=== PATIENT | female | born 1960 | race Caucasian/White ===

== ENCOUNTER 2016-08-06 21:16 | Emergency (ER) | payer MEDICAID ==
[2014-07-24 15:32] VITALS: BMI 20.8
[~2016-08-06 21:16] MED LIST: ALBUTEROL1.25 MG/3 INH; CATAPRES-T1 PATCH.WK; FLEXERIL10 MG PO; HYDROCODONE-APA1 TAB; HYDROCODONE-APA1 TAB PO; LISINOPRIL10 MG PO; NORCO 10/325 TA1 TA1 PO; PAXIL10 MG PO; VENTOLIN HFA18 GM INH
== END 2016-08-06 22:35 | disposition home or self-care (01) ==
LOC: D.ER 21:16
DX: S00.01XA Abrasion of scalp, initial encounter (principal); W22.09XA Striking against other stationary object, initial encounter; Y93.89 Activity, other specified; Y92.019 Unspecified place in single-family (private) house as the place of occurrence of the external cause; C34.90 Malignant neoplasm of unspecified part of unspecified bronchus or lung; F17.200 Nicotine dependence, unspecified, uncomplicated

== ENCOUNTER 2017-01-20 09:03 | Emergency (ER) | payer MEDICAID ==
[2014-07-24 15:32] VITALS: BMI 20.8
[2017-01-20 09:36] LABS: BASOPHILS 0.4 % (0-2); EOSINOPHILS 6.7 % (0-7); HEMATOCRIT 39.4 % (36.0-48.0); HEMOGLOBIN 13.6 g/dL (12-16); LYMPHOCYTES 30.1 % (15-50); MCH 33.7 pg (26.0-34.0); MCHC 34.5 g/dL (31.0-37.0); MCV 97.5 fL (80.0-100.0); MEAN PLATELET VOLUME 9.4 fL (7.4-10.4); MONOCYTES 6.8 % (2-11); RBC 4.04 10x6/uL (4.00-5.40); RDW 13.4 % (11.5-14.5); WBC 5.4 10x3/uL (4.8-10.8)
[2017-01-20 09:43] LABS: PLATELET COUNT 175 10x3/uL (130-400)
[2017-01-20 09:59] LABS: ALBUMIN 3.7 g/dL (3.4-5.0); ALKALINE PHOSPHATASE 77 U/L (46-116); ALT (SGPT) 77 U/L (10-68); BILIRUBIN - TOTAL 0.63 mg/dL (0.2-1.3); CALC OSMOLALITY 276 mosm/kg (275-300); CALCIUM 8.4 mg/dL (8.5-10.1); CARBON DIOXIDE 23.5 mmol/L (21.0-32.0); CHLORIDE - SERUM 102 mmol/L (98-107); CREATININE - SERUM 0.6 mg/dL (0.6-1.3); GLUCOSE 135 mg/dL (74-106); POTASSIUM - SERUM 3.8 mmol/L (3.5-5.1); PROTEIN - SERUM 6.8 g/dL (6.4-8.2); SODIUM 138 mmol/L (136-145); UREA NITROGEN 9 mg/dL (7-18); eGFR NON AFRICAN AMERICAN > 90 mL/min (90-120)
[2017-01-20 10:17] LABS: CKMB 0.7 U/L (0.0-3.6); CREATINE KINASE 104 UL (21-215); TROPONIN-I < 0.017 ng/mL (0.000-0.060)
[2017-01-20 10:59] LABS: APPEARANCE CLEAR (CLEAR); BILIRUBIN NEGATIVE (NEGATIVE); COLOR YELLOW (YELLOW); GLUCOSE 50 mg/dL (NEGATIVE); KETONE SMALL mg/dL (NEGATIVE); LEUKOCYTE ESTERASE NEGATIVE (NEGATIVE); NITRITE NEGATIVE (NEGATIVE); PROTEIN NEGATIVE (NEGATIVE); SPECIFIC GRAVITY 1.015 (1.005-1.020); UROBILINOGEN NORMAL (NORMAL)
== END 2017-01-20 13:12 | disposition home or self-care (01) ==
LOC: D.ER 09:03
PROVIDERS: Family Medicine
DX: E16.2 Hypoglycemia, unspecified (principal); Z76.0 Encounter for issue of repeat prescription; C34.90 Malignant neoplasm of unspecified part of unspecified bronchus or lung; J44.9 Chronic obstructive pulmonary disease, unspecified; J45.909 Unspecified asthma, uncomplicated

== ENCOUNTER 2017-05-30 22:05 | Emergency (ER) | payer MEDICAID ==
[2014-07-24 15:32] VITALS: BMI 20.8
== END 2017-05-31 02:30 | disposition home or self-care (01) ==
LOC: D.ER 22:05
DX: R51 Headache (principal); F17.200 Nicotine dependence, unspecified, uncomplicated

== ENCOUNTER 2018-11-17 20:49 | Observation (INO) | payer MEDICAID | END 2018-11-18 09:43 | disposition left against medical advice (07) | LOC: D.ER 20:49 → D.MS 22:43 | PROVIDERS: ADMIT Family Medicine | DX: F10.129 Alcohol abuse with intoxication, unspecified (principal); I10 Essential (primary) hypertension; F32.9 Major depressive disorder, single episode, unspecified; J44.9 Chronic obstructive pulmonary disease, unspecified; M79.7 Fibromyalgia; R40.2244 Coma scale, best verbal response, confused conversation, 24 hours or more after hospital admission; R40.2354 Coma scale, best motor response, localizes pain, 24 hours or more after hospital admission; R40.2144 Coma scale, eyes open, spontaneous, 24 hours or more after hospital admission; Y90.8 Blood alcohol level of 240 mg/100 ml or more; F41.9 Anxiety disorder, unspecified ==

== ENCOUNTER 2020-10-20 03:30 | Inpatient (IN) | payer MEDICAID ==
[2020-10-20] VITALS (11 sets, daily range): BP systolic 123–163; BP diastolic 76–99; BMI 21.5
[~2020-10-20] VITALS: Ht 162.6 cm; Wt 56.7 kg
[~2020-10-20 03:30] MED LIST changes: +LOPRESSOR25 MG PO; +metoprolol PO
[2020-10-20] MEDS ORDERED: METHOCARBAMOL500 MG PO (03:34)
[2020-10-20] MEDS ORDERED: GABAPENTIN300 MG PO (03:34)
--- NOTE | 2020-10-20 03:52 | NUR ---
BLOOD AND URINE SENT TO LAB.
[2020-10-20 04:00] LABS: BASOPHILS 0.2 % (0-2); EOSINOPHILS 0 % (0-7); HEMATOCRIT 37.2 % (36.0-48.0); HEMOGLOBIN 12.9 g/dL (12-16); IMMATURE GRANULOCYTES 0.3 % (0-5); LYMPHOCYTE ABS# 0.92 10x3/uL (1.18-3.74); LYMPHOCYTES 9.9 % (15-50); MCH 35.4 pg (26.0-34.0); MCHC 34.7 g/dL (31.0-37.0); MCV 102.2 fL (80.0-100.0); MEAN PLATELET VOLUME 9.7 fL (7.4-10.4); MONOCYTES 8.3 % (2-11); NEUTROPHIL ABS# 7.55 10x3/uL (1.56-6.13); NEUTROPHILS 81.3 % (40-80); RBC 3.64 10x6/uL (4.00-5.40); RDW 14.1 % (11.5-14.5); WBC 9.3 10x3/uL (4.8-10.8)
[2020-10-20 04:03] LABS: PLATELET COUNT 207 10x3/uL (130-400)
[2020-10-20 04:07] LABS: ANION GAP 30.6 mmol/L (8-16); CALCIUM 8.9 mg/dL (8.5-10.1); CARBON DIOXIDE 14.2 mmol/L (21.0-32.0); CREATININE - SERUM 1.1 mg/dL (0.6-1.3); POTASSIUM - SERUM 3.8 mmol/L (3.5-5.1)
[2020-10-20 04:16] LABS: BILIRUBIN NEGATIVE (NEGATIVE); KETONE LARGE mg/dL (NEGATIVE); NITRITE NEGATIVE (NEGATIVE); UROBILINOGEN NORMAL mg/dL (< 2)
[2020-10-20 04:21] LABS: ALBUMIN 3.4 g/dL (3.4-5.0); BILIRUBIN - TOTAL 1.17 mg/dL (0.2-1.3); PROTEIN - SERUM 6.9 g/dL (6.4-8.2)
[2020-10-20 04:22] LABS: BACTERIA MODERATE HPF (NONE SEEN); SQUAMOUS EPITHELIAL 0-5 HPF (0-4); WHITE CELLS - URINE 25-50 HPF (0-4)
--- NOTE | 2020-10-20 04:29 | NUR ---
CODE SEPSIS CALLED TO ED ROOM 10. RAPID RESPONSE TREATMENT RECORD COMPLETED AND ABX INITIATED AND DOCUMENTED IN
--- NOTE | 2020-10-20 04:29 | NUR ---
CRITICAL RESULT CALLED TO ED. LACTIC ACID 2.6. EDP RAE NOTIFIED, FURTHER ORDERS ENTERED INTO CHART.
--- NOTE | 2020-10-20 07:30 | NUR ---
REPORTED TO AGUSTIN MCKENZIE LPN . PT GOING TO ROOM 9529
[2020-10-20 09:17] LABS: CALC OSMOLALITY 273 mosm/kg (275-300); CALCIUM 7.5 mg/dL (8.5-10.1); CARBON DIOXIDE 15.7 mmol/L (21.0-32.0); CHLORIDE - SERUM 100 mmol/L (98-107); CKMB 1.6 U/L (0.0-3.6); CREATINE KINASE 38 UL (21-215); CREATININE - SERUM 0.8 mg/dL (0.6-1.3); GLUCOSE 102 mg/dL (74-106); MAGNESIUM - SERUM 1.3 mg/dL (1.8-2.4); POTASSIUM - SERUM 3.6 mmol/L (3.5-5.1); SODIUM 138 mmol/L (136-145); UREA NITROGEN 7 mg/dL (7-18); eGFR NON AFRICAN AMERICAN 77 mL/min (90-120)
[2020-10-20 09:19] LABS: TROPONIN-I 0.169 ng/mL (0.000-0.060)
[2020-10-20 09:19] LABS: UDS - AMPHET NEGATIVE QUAL (NEGATIVE); UDS - BARB NEGATIVE QUAL (NEGATIVE); UDS - BENZO NEGATIVE QUAL (NEGATIVE); UDS - COCAINE NEGATIVE QUAL (NEGATIVE); UDS - OPIATE NEGATIVE QUAL (NEGATIVE); UDS - PCP NEGATIVE QUAL (NEGATIVE); UDS - THC NEGATIVE QUAL (NEGATIVE)
[2020-10-20 10:52] LABS: CHOL - HDL RATIO 2.5 ratio (2.3-4.1); LDL-HDL RATIO 1.1 ratio (1.5-3.5)
--- NOTE | 2020-10-20 11:31 | NUR ---
PATIENT TO UNTI VIA WHEELCHAIR. UP WITH STANDBY ASSIST FROM WHEELCHAIR TO BED. IV IN LEFT AC SALINE LOCKED, IV IN RIGHT AC SALINE LOCKED. COMPLAINS OF ABDOMINAL PAIN. DOCTOR AWARE. BED LOW POSITION, CALL LIGHT IN REACH. WILL CONTINUE TO MONITOR.
[2020-10-20 13:36] LABS: CKMB 1.7 U/L (0.0-3.6); CREATINE KINASE 39 UL (21-215)
[2020-10-20 13:38] LABS: TROPONIN-I 0.221 ng/mL (0.000-0.060)
--- NOTE | 2020-10-20 20:15 | NUR ---
ASSESSMENT PER FLOW SHEET, VS OBTAINED PER GARNISHER, SALINE LOCK IN LEFT AND RIGHT AC INTACT WITH NO REDNESS OR EDEMA, PT DENIES FLATUS, NO BM AND VOIDING WITH SLIGHT BURNING SENSATION, PT INST ON AND ENC TO USE I.S., PT REFUSES SCD'S, DENIES NEEDS OR PAIN AT THIS TIME, BED IN LOW POSITION, SIDE RAILS RAILS X 2, CALL LIGHT IN REACH
--- NOTE | 2020-10-20 21:30 | NUR ---
OBTAINED EKG, PT TOLERATED WELL. BED LOW, CL IN REACH.
--- NOTE | 2020-10-20 22:39 | NUR ---
PRINT SHOP STENOGRAPHER NOTIFIED, REPORTS PT IS SINUE RHYTHM, HR 98
--- NOTE | 2020-10-20 22:40 | NUR ---
PT AWAKE, WATCHING TV, FLUSHED SALINE LOCK, ADM 2200 MED SIVP PER MD ORDERS, SEE EMAR, SALINE LOCK FLUSHED, PT REQUESTED AND SERVED ICE CHIPS, DENIES FURTHER NEEDS OR PAIN
[2020-10-20 23:36] LABS: CKMB 1.4 U/L (0.0-3.6); CREATINE KINASE 57 UL (21-215)
[2020-10-20 23:39] LABS: TROPONIN-I 0.137 ng/mL (0.000-0.060)
--- NOTE | 2020-10-21 00:21 | NUR ---
PT AWAKE, GETTING BACK INTO BED, REPORTS VOIDED, DENIES NEEDS OR PAIN AT THIS TIME, BED IN LOW POSITION, SIDE RAILS X 2, CALL LIGHT IN REACH
--- NOTE | 2020-10-21 02:05 | NUR ---
PT RESTING WITH EYES CLOSED, RESP QUIET, NO DISTRESS NOTED, LEFT UNDISTURBED AT THIS TIME, BED IN LOW POSITION, SIDE RAILS X 2, CALL LIGHT IN REACH
--- NOTE | 2020-10-21 04:25 | NUR ---
PT RESTING WITH EYES CLOSED, RESP QUIET, NO DISTRESS NOTED, LEFT UNDISTURBED AT THIS TIME
[2020-10-21 04:30] VITALS: BP 132/74
--- NOTE | 2020-10-21 06:32 | NUR ---
PT AWAKE, SALINE LOCKS FLUSHED, NS HUNG AT KVO, ROCEPHIN HUNG IVPB, BANANA BAG HUNG, ADM PROTONIX WITH A SMALL SIP OF H20, LOPRESSOR ADM SIVP, PER MD ORDERS, SEE EMAR, UA COLLECTED, PT DENIES NEEDS OR PAIN AT THIS TIME
[2020-10-21 06:43] LABS: BASOPHILS 0.1 % (0-2); HEMATOCRIT 30.2 % (36.0-48.0); IMMATURE GRANULOCYTES 0.1 % (0-5); LYMPHOCYTE ABS# 1.25 10x3/uL (1.18-3.74); LYMPHOCYTES 18.6 % (15-50); MCH 34.2 pg (26.0-34.0); MCHC 33.1 g/dL (31.0-37.0); MCV 103.4 fL (80.0-100.0); MEAN PLATELET VOLUME 9.5 fL (7.4-10.4); MONOCYTES 10.6 % (2-11); NEUTROPHIL ABS# 4.66 10x3/uL (1.56-6.13); NEUTROPHILS 69.6 % (40-80); RBC 2.92 10x6/uL (4.00-5.40); RDW 14.2 % (11.5-14.5)
[2020-10-21 06:45] LABS: PLATELET COUNT 162 10x3/uL (130-400); WBC 6.7 10x3/uL (4.8-10.8)
[2020-10-21 06:47] LABS: ALBUMIN 2.6 g/dL (3.4-5.0); ALKALINE PHOSPHATASE 119 U/L (30-120); AMYLASE - SERUM 124 U/L (25-115); BILIRUBIN - TOTAL 0.84 mg/dL (0.2-1.3); CALC OSMOLALITY 268 mosm/kg (275-300); CALCIUM 7.8 mg/dL (8.5-10.1); CHLORIDE - SERUM 99 mmol/L (98-107); GLUCOSE 72 mg/dL (74-106); PROTEIN - SERUM 5.6 g/dL (6.4-8.2); SODIUM 136 mmol/L (136-145); UREA NITROGEN 6 mg/dL (7-18)
[2020-10-21 06:56] LABS: CREATININE - SERUM 0.5 mg/dL (0.6-1.3); LIPASE 907 U/L (73-393); MAGNESIUM - SERUM 1.9 mg/dL (1.8-2.4)
[2020-10-21 06:57] LABS: ALT (SGPT) 67 U/L (10-68); CARBON DIOXIDE 21.5 mmol/L (21.0-32.0); eGFR NON AFRICAN AMERICAN > 90 mL/min (90-120)
--- NOTE | 2020-10-21 08:13 | NUR ---
RESTING IN BED WITH EYES OPEN, ALERT AND ORIENTED. IV LOCATED TO LEFT AC CURRENTLY RUNNING @ 125, SECOND IV TO RIGHT AC CURRENTLY SL. REFUSED TO WEAR SCDS. ASSISTED TO BATHROOM. NO CURRENT S/S OF DISTRESS, DENIES FURTHER NEEDS, WILL CONT TO MONITOR.
[2020-10-21 08:15] VITALS: BP 132/82
[2020-10-21 10:21] LABS: HEPATITIS C ANTIBODY <0.1 S/CO RAT (0.0-0.9)
[2020-10-21 12:50] VITALS: Ht 162.6 cm; Wt 56.7 kg
[2020-10-21 13:00] VITALS: BP 125/92
--- NOTE | 2020-10-21 13:38 | EC ---
PATIENT:PHOENIX CRUMP DATE OF SERVICE: 10/20/20 SEX: F MEDICAL RECORD: [id number] DATE OF : 60 LOCATION:[facility] AGE OF PATIENT: 60 ADMISSION DATE: 10/20/20 REFERRING PHYSICIAN: INTERPRETING PHYSICIAN: NISHA ERAZO MD ECHOCARDIOGRAM REPORT ECHO CHARGES 4 ECHO COMPLETE Date: 10/20/20 CLINICAL DIAGNOSIS: LVH ECHOCARDIOGRAPHIC MEASUREMENTS (adult normal given) AC root (d.<3.7cm) 2.4 cm LV Septum d (<1.2 cm> 0.8 cm Valve Excursion 1.2 cm LV Septum (systole) 1.2 cm Left Atria (s.<4.0cm> 3.9 cm LVPW d(<1.2cm) 1.1 cm RV (d.<2.3cm) 2.3 cm LVPW (sytole) 1.3 cm LV diastole(<5.6CM) 4.8 cm MV E-F(>70mm/sec) cm LV systole 3.8 cm LVOT Diameter 1.7 cm MV exc.(>10mm) 1.5 cm Est.ejection fraction (50-75%) % DOPPLER: LVIT cm/sec A 92 cm/sec E 63 cm/sec LA cm/sec RVSP 30 mmHg LVOT 121 cm/sec AOP1/2T m/s Asc. Ao 156 cm/sec RVOT 63 cm/sec RA cm/sec PA 83 cm/sec AV Gradient Peak 9.7 mmHg AV Mean 5.8 mmHg AV Area 1.7 cm MV Gradient Peak 4.8 mmHg MV Mean 2.1 mmHg MV Area cm COMMENTS: Rn Burn: [place]IVER[place] Senior Software Qa Analyst: 3 Dr. Alvarez TAPE# Pericardial Effusion N DATE OF SERVICE: Adequate 2D, color flow imaging, spectral Doppler, and M-Mode. No LVH. LV internal dimensions are normal. Wall motion is normal. EF is greater than or equal to 55%. Aortic valve is tricuspid. No evidence of stenosis by Doppler interrogation. There is mild AI by color flow imaging. Left atrium is normal at 3.9 cm. Mitral valve shows no prolapse. Trace MR. Right side is grossly normal. Trace TR. ECHOCARDIOGRAM REPORT [id number] PHOENIX CRUMP TRANSINT:[id number] Voice Confirmation ID: [id number] DOCUMENT ID: [id number] NISHA ERAZO MD at 1338 CC: [id number] DICTATION DATE: 10/20/20 1524 DIE STAMPING PRESS OPERATOR: 10/20/20 1601 ADM IN [facility] [address] [id number]
[2020-10-21 16:46] VITALS: BP 140/95
[2020-10-21 20:00] VITALS: BP 144/87
[2020-10-22 04:00] VITALS: BP 153/90
[2020-10-22 07:25] LABS: BASOPHILS 0.2 % (0-2); EOSINOPHILS 0.3 % (0-7); HEMATOCRIT 27.6 % (36.0-48.0); HEMOGLOBIN 9.3 g/dL (12-16); IMMATURE GRANULOCYTES 0.5 % (0-5); LYMPHOCYTE ABS# 1.33 10x3/uL (1.18-3.74); LYMPHOCYTES 20.8 % (15-50); MCH 34.6 pg (26.0-34.0); MCHC 33.7 g/dL (31.0-37.0); MCV 102.6 fL (80.0-100.0); MEAN PLATELET VOLUME 9.6 fL (7.4-10.4); MONOCYTES 15.8 % (2-11); NEUTROPHILS 62.4 % (40-80); PLATELET COUNT 168 10x3/uL (130-400); RBC 2.69 10x6/uL (4.00-5.40); RDW 13.8 % (11.5-14.5); WBC 6.4 10x3/uL (4.8-10.8)
[2020-10-22 07:51] LABS: ALBUMIN 2.3 g/dL (3.4-5.0); ALKALINE PHOSPHATASE 120 U/L (30-120); ALT (SGPT) 60 U/L (10-68); AMYLASE - SERUM 114 U/L (25-115); BILIRUBIN - TOTAL 0.72 mg/dL (0.2-1.3); CALCIUM 7.8 mg/dL (8.5-10.1); CARBON DIOXIDE 24.6 mmol/L (21.0-32.0); CHLORIDE - SERUM 100 mmol/L (98-107); CREATININE - SERUM 0.4 mg/dL (0.6-1.3); GLUCOSE 101 mg/dL (74-106); MAGNESIUM - SERUM 1.7 mg/dL (1.8-2.4); SODIUM 135 mmol/L (136-145); eGFR NON AFRICAN AMERICAN > 90 mL/min (90-120)
[2020-10-22 08:00] LABS: CALC OSMOLALITY 266 mosm/kg (275-300); LIPASE 2032 U/L (73-393); UREA NITROGEN 3 mg/dL (7-18)
[2020-10-22 08:01] LABS: POTASSIUM - SERUM 2.9 mmol/L (3.5-5.1)
[2020-10-22 08:56] VITALS: BP 129/84
--- NOTE | 2020-10-22 09:00 | NUR ---
ALERT AND OREITNED X4.ELECTROLYTES REPLACED PER PROTOCOL. TELEMERY INTACT SINUS TACH 108. DENIES ANY PAIN OR DISCOMFORT. ENCOURAGED TO USE CALL LIGHT FOR ASSSIT.
[2020-10-22 12:58] VITALS: BP 121/85
[2020-10-22 16:55] VITALS: BP 144/75
[2020-10-22 20:00] VITALS: BP 150/99
[2020-10-23] VITALS: BP 129/8; BP 141/89
--- NOTE | 2020-10-23 03:38 | NUR ---
PATIENT HAD SMALL BM. DENIES PAIN. NO FURTHER NEEDS AT THIS TIME.
[2020-10-23 06:49] LABS: BASOPHILS 0.2 % (0-2); EOSINOPHILS 0.2 % (0-7); HEMATOCRIT 27.7 % (36.0-48.0); HEMOGLOBIN 9.3 g/dL (12-16); IMMATURE GRANULOCYTES 0.6 % (0-5); LYMPHOCYTE ABS# 1.51 10x3/uL (1.18-3.74); LYMPHOCYTES 24.2 % (15-50); MCH 34.6 pg (26.0-34.0); MCHC 33.6 g/dL (31.0-37.0); MEAN PLATELET VOLUME 9.8 fL (7.4-10.4); MONOCYTES 19.4 % (2-11); NEUTROPHIL ABS# 3.46 10x3/uL (1.56-6.13); NEUTROPHILS 55.4 % (40-80); PLATELET COUNT 163 10x3/uL (130-400); RBC 2.69 10x6/uL (4.00-5.40); RDW 14.1 % (11.5-14.5); WBC 6.2 10x3/uL (4.8-10.8)
[2020-10-23 06:57] LABS: ALBUMIN 2.3 g/dL (3.4-5.0); ALKALINE PHOSPHATASE 121 U/L (30-120); ALT (SGPT) 51 U/L (10-68); BILIRUBIN - TOTAL 0.75 mg/dL (0.2-1.3); CALC OSMOLALITY 264 mosm/kg (275-300); CARBON DIOXIDE 23.7 mmol/L (21.0-32.0); CHLORIDE - SERUM 102 mmol/L (98-107); CREATININE - SERUM 0.3 mg/dL (0.6-1.3); GLUCOSE 92 mg/dL (74-106); POTASSIUM - SERUM 3.3 mmol/L (3.5-5.1); PROTEIN - SERUM 5.1 g/dL (6.4-8.2); SODIUM 134 mmol/L (136-145); UREA NITROGEN 3 mg/dL (7-18); eGFR NON AFRICAN AMERICAN > 90 mL/min (90-120)
[2020-10-23 07:15] LABS: AMYLASE - SERUM 154 U/L (25-115)
[2020-10-23 07:28] LABS: LIPASE 2449 U/L (73-393)
[2020-10-23 09:31] VITALS: BP 133/84
[2020-10-23 13:19] VITALS: BP 135/83
--- NOTE | 2020-10-23 14:25 | MORECARE ---
CASE MANAGEMENT DISCHARGE SUMMARY PATIENT: PHOENIX CRUMP UNIT: [id number] ADM DATE: 10/20/20 AGE: 60 : 60 SEX: F ROOM/BED: D.2215 AUTHOR: HARJEET CASTILLO PHYSICIAN: REFERRING PHYSICIAN: HARMONY MCCLAIN MD DATE OF SERVICE: 10/23/20 Case Management Discharge Planning Summary COMMENTS ENTERED DATE: 10/23/20 14:22 CT COMMENT TYPE: Discharge Planning REVIEWER: Shadia Molina Patient's PCP is [facility] on [facility] ENTERED DATE: 10/23/20 14:18 CT COMMENT TYPE: Discharge Planning REVIEWER: Shadia Molina CM met with patient to complete initial dc planning assessment. CM educated patient on the CM role and verbal consent given by patient to complete assessment. Patient lives at home with a friend. Her friend Kenny is with her in her room and they will take a taxi home. At discharge patient plans to return home and feels this is a safe discharge. CM discussed availability of home health, rehab services, and medical equipment. Patient denied known discharge needs at this time. CM will continue to follow and will assist as needed with dc plans/needs. DCP REVIEW SUMMARY ANTICIPATED D/C DATE: EXPECTED LOS : CASE STATUS: DCP Initiated INITIAL REVIEW: 10/20/2020 INITIAL REVIEWER: Shadia Molina FINAL DISCHARGE DISPOSITION: 01 : Home or Self Care (Routine Discharge) FINAL REVIEWER: FINAL REVIEW DATE: DCP Focus Questions & Answers QUESTION: ANSWER : PATIENT: PHOENIX CRUMP ENCOUNTER: [id number] MEDICAL RECORD#: [id number] ADMISSION DATE: 10/20/2020 DISCHARGE DATE: ATTENDING MD: JOHNY MCCLAIN : AGE: 60 MARITAL STATUS: S DC PLAN ID: [id number] FACILITY: [facility] PRINTED ON: 10/23/20 14:25 CT All edits/amendments must be made on the electronic document DICTATION DATE: 10/23/20 4549 STRATEGY LEAD: RAVI 10/23/20 3101 RPT#: [id number] DC DATE: STATUS: ADM IN [facility] [address] [place] [address] END OF REPORT
--- NOTE | 2020-10-23 14:41 | NUR ---
IV AND TELEMETRY DISCONTINUED AND VERBALIZED UNDERSTANDING OF DISCHARGE INSTRUCTIONS. STABLE AT TIME OF DISCHARGE.
--- NOTE | 2020-10-26 14:55 | MORECARE ---
CASE MANAGEMENT DISCHARGE SUMMARY PATIENT: PHOENIX CRUMP UNIT: [id number] ADM DATE: 10/20/20 AGE: 60 : 60 SEX: F ROOM/BED: D[facility] AUTHOR: HARJEET CASTILLO PHYSICIAN: REFERRING PHYSICIAN: HARMONY MCCLAIN MD DATE OF SERVICE: 10/26/20 Case Management Discharge Planning Summary COMMENTS ENTERED DATE: 10/23/20 14:22 CT COMMENT TYPE: Discharge Planning REVIEWER: Shadia Molina Patient's PCP is [facility] ENTERED DATE: 10/23/20 14:18 CT COMMENT TYPE: Discharge Planning REVIEWER: Shadia Molina CM met with patient to complete initial dc planning assessment. CM educated patient on the CM role and verbal consent given by patient to complete assessment. Patient lives at home with a friend. Her friend Kenny is with her in her room and they will take a taxi home. At discharge patient plans to return home and feels this is a safe discharge. CM discussed availability of home health, rehab services, and medical equipment. Patient denied known discharge needs at this time. CM will continue to follow and will assist as needed with dc plans/needs. DCP REVIEW SUMMARY ANTICIPATED D/C DATE: EXPECTED LOS : CASE STATUS: DCP Initiated INITIAL REVIEW: 10/20/2020 INITIAL REVIEWER: Shadia Molina FINAL DISCHARGE DISPOSITION: 01 : Home or Self Care (Routine Discharge) FINAL REVIEWER: FINAL REVIEW DATE: DCP [facility] Questions & Answers QUESTION: ANSWER : PATIENT: PHOENIX CRUMP ENCOUNTER: [id number] MEDICAL RECORD#: [id number] ADMISSION DATE: 10/20/2020 DISCHARGE DATE: 10/23/2020 ATTENDING MD: JOHNY MCCLAIN : AGE: 60 MARITAL STATUS: S DC PLAN ID: [id number] FACILITY: [facility] PRINTED ON: 10/26/20 14:54 CT All edits/amendments must be made on the electronic document DICTATION DATE: 10/26/20 4326 HOT ROLLER: RAVI 10/26/20 1454 RPT#: [id number] DC DATE:10/23/20 STATUS: DIS IN [facility] [address] [place] [address] END OF REPORT
== END 2020-10-23 14:47 | disposition home or self-care (01) | DRG 439 ==
LOC: D.ER 03:30 → D.MS 07:37
PROVIDERS: Family Medicine; ADMIT Family Medicine; ATTEND Family Medicine
DX: K85.90 Acute pancreatitis without necrosis or infection, unspecified (principal); N39.0 Urinary tract infection, site not specified; E87.1 Hypo-osmolality and hyponatremia; E87.3 Alkalosis; F17.203 Nicotine dependence unspecified, with withdrawal; E87.6 Hypokalemia; R74.01 Elevation of levels of liver transaminase levels; F10.20 Alcohol dependence, uncomplicated; I10 Essential (primary) hypertension; I25.10 Atherosclerotic heart disease of native coronary artery without angina pectoris; J44.9 Chronic obstructive pulmonary disease, unspecified; R00.0 Tachycardia, unspecified

== ENCOUNTER → 2020-11-24 10:16 | Outpatient (CLI) | payer MEDICAID ==
[2020-10-21 12:50] VITALS: BMI 21.4
[~2020-11-24 10:16] MED LIST changes: +GABAPENTIN300 MG PO; +METHOCARBAMOL500 MG PO
== END | disposition home or self-care (01) ==
LOC: D.US 10:16
PROVIDERS: ATTEND Internal Medicine Cardiovascular Disease
DX: R60.0 Localized edema (principal)